=== PATIENT | female | born 1960 | race Caucasian/White ===

== ENCOUNTER → 2024-01-12 | Emergency (ER) | payer OTHER ==
[~2024-01-12] MED LIST: DIAZEPAM 5 MG TABLET ONE; HYDROCODONE/APAP 10/325 TAB ONE; HYDROCODONE/APAP 5/325 MG TAB ONE; IBUPROFEN 400 MG TAB ONE
[2024-01-12 20:06] LABS: Absolute Lymphocytes (CBC) 1.2 K/uL (0.7-4.9); Basophils % 0.3 % (0-1.3); Hematocrit 35.8 % (36.0-45.0); Lymphocytes % 11.6 % (15.3-44.8); Platelets 398 thou/uL (152-406); RBC Red Blood Cell Count 3.97 M/uL (3.86-4.86)
[2024-01-12 20:28] LABS: ALT/SGPT 25 U/L (13-56); AST/SGOT 20 U/L (15-37); Albumin 3.4 g/dL (3.4-5.0); Albumin/Globulin Ratio 0.9 (1.1-1.8); Alkaline Phosphatase 129 U/L (45-117); Anion Gap 9.3 mEq/L (5.0-15.0); BUN Blood Urea Nitrogen 10 mg/dL (7-18); Bicarbonate 25 mEq/L (21-32); Bilirubin Direct < 0.1 mg/dL (0-0.2); Bilirubin Indirect, Calculated ND mg/dL (0.2-0.8); Bilirubin Total 0.2 mg/dL (0.2-1.0); Glomerular Filtration Rate 66 ml/min (=/>90); Glucose Level 119 mg/dL (74-106); Potassium 4.3 mEq/L (3.5-5.1); Protein, Total 7.1 g/dL (6.4-8.2); Sodium Level 132 mEq/L (136-145); Troponin High Sensitivity 22.2 pg/mL (<58.9)
--- NOTE | 2024-01-12 20:39 | RAD REPORT ---
EXAM DESCRIPTION: RAD - Chest Single View - 01/12/2024 8:32 pm CLINICAL HISTORY: CHEST PAIN COMPARISON: No comparisons FINDINGS: Lines: None. Lungs: No evidence of edema or pneumonia. Pleural: No significant pleural effusions or pneumothorax. Cardiac: The heart size is within normal limits. Mediastinum: Within normal limits. Bones: No acute fractures. Other: None IMPRESSION: No acute cardiopulmonary disease.
--- NOTE | 2024-01-12 21:12 | RAD REPORT ---
EXAM DESCRIPTION: CT - Chest For Pe Angio - 01/12/2024 9:01 pm CLINICAL HISTORY: right sided chest pain- patient fell monday COMPARISON: No comparisons TECHNIQUE: Dynamically enhanced axial 3 mm thick images of the chest were obtained during administra tion of <100> mL Isovue 370 IV contrast. Coronal and oblique reconstruction images were generated and reviewed. Exam utilizes a protocol for optimal evaluation of pulmonary arterial tree. Maximum intensity projections 3D imaging was utilized All CT scans are performed using dose optimization technique as appropriate and may include automated exposure control or mA/KV adjustment according to patient size. FINDINGS: Chest Wall: No suspicious thyroid nodules or pathologic lymphadenopathy. Lungs: No acute abnormality. Centrilobular and paraseptal emphysema. Pleura: No significant effusions or pneumothorax. Mediastinum/andre: No pathologic lymphadenopathy. Pulmonary arteries/Aorta: No filling defect identified. No aortic aneurysm. Heart: No significant pericardial effusion. Normal heart size. Upper abdomen: No acute abnormality. Bones: Mild T8 superior endplate deformity with less than 20% loss of height. IMPRESSION: Negative for pulmonary embolism. Mild superior endplate deformity at T8 suspicious for a n acute compression fracture with less than 20% loss of height and no bony retropulsion.
--- NOTE | 2024-01-12 21:16 | RAD REPORT ---
EXAM DESCRIPTION: CTAbdomen Pelvis W Contrast - 01/12/2024 9:01 pm CLINICAL HISTORY: TRAUMA COMPARISON: No comparisons TECHNIQUE: CT of the abdomen and pelvis was performed. All CT scans are performed using dose optimization technique as appropriate and may include automated exposure control or mA/KV adjustment according to patient size. FINDINGS: Lower chest: No acute abnormality. Liver: No acute abnormality or suspicious lesions. Biliary: Cholecystectomy. Extrahepatic biliary duct dilatation with common bile duct measuring 10 mil limeters which may be related to the postcholecystectomy state. Stomach: No significant focal abnormality. Duodenum: No significant focal abnormality. Pancreas: No significant abnormality. Spleen: No significant abnormality. Adrenal: No suspicious lesions. Kidney/ureter: No hydronephrosis. No renal calculi. Retroperitoneum: No retroperitoneal adenopathy. Vascular: No aneurysm. Atherosclerosis . Bowel: Moderate stool. No appendicitis. No bowel obstruction.. Peritoneum: No ascites or free air. Small fat containing ventral hernia. Bladder: Grossly unremarkable. Reproductive: No adnexal masses. Hysterectomy. Bones: No acute fracture. Other: n/a IMPRESSION: No acute intra-abdominal or pelvic finding.
[2024-01-12 21:35] LABS: Blood Morphology Comment NOT SEEN (NOT SEEN); Platelet Estimate ADEQ; White Blood Cell Scan OK (OK)
--- NOTE | 2024-01-12 21:41 | EDPHYS ---
Physician Documentation [facility] Name: Sharon Fisher Age: 63 yrs Sex: Female : 1960 Arrival Date: 01/12/2024 Time: 19:03 Bed 5 Private MD: ED Physician Henry Kent HPI: 01/11 19:37 This 63 yrs old Female presents to ER via Ambulatory with complaints of Shortness Of ms3 Breath, Back Pain. 19:37 63-year-old female with past medical history of hypertension [place] [facility] [place] pain. Patient states last Monday she was getting out of bed when her foot was caught in the sheet and caused her to fall. 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 Patient saw [facility] on where x-rays were performed that did not reveal fracture. Patient states her pain is currently 7/10 and breathing makes the pain worse. Patient denies any alleviating factors.. Historical: - Allergies: 19:14 Sulfa (Sulfonamide Antibiotics); km8 19:14 Lluvia; km8 19:14 entrex; km8 - PMHx: 19:14 Hypertensive disorder; km8 - PSHx: 19:14 Appendectomy; section; Cholecystectomy; Total abdominal hysterectomy; km8 Tonsillectomy; neck surgery; abdominal surgery; - Immunization history:: Client reports receiving the 2nd dose of the Covid vaccine, Flu vaccine is not up to date. - Social history:: Smoking status: Patient reports the use of cigarette tobacco products, smokes one pack cigarettes per day. Patient uses alcohol, but reports only rare drinking. Patient/guardian denies using street drugs. ROS: 19:37 Constitutional: Negative for fever, and chills. Neck: Negative for injury, pain, and ms3 swelling, 19:37 Neck: Positive for Pain, 19:37 Cardiovascular: Positive for chest pain, of the Right thoracic region, 19:37 Respiratory: Positive for Pleuritic chest pain, Exam: 19:37 Constitutional: This is a well developed, well nourished patient who is awake, alert, ms3 and in no acute distress. Head/Face: Normocephalic, atraumatic. Cardiovascular: Regular rate and rhythm with a normal S1 and S2. No gallops, murmurs, or rubs. Normal PMI, no JVD. No pulse deficits. Respiratory: Lungs have equal breath sounds bilaterally, clear to auscultation and percussion. No rales, rhonchi or wheezes noted. No increased work of breathing, no retractions or nasal flaring. Skin: Warm, dry with normal turgor. Normal color with no rashes, no lesions, and no evidence of cellulitis. 19:37 Chest/axilla: Inspection: normal, Palpation: is normal, Patient complaining of posterior right-sided rib pain that is not reproducible with palpation. 19:52 ECG was reviewed by the Attending Physician. ms3 20:43 EKG at 1947 reveals normal sinus rhythm at the rate of 71 sp4 Vital Signs: 19:12 BP 155 / 97; Pulse 72; Resp 16; Temp 97.5(TE); Pulse Ox 100% on R/A; Weight 63.5 kg km8 (R); Height 5 ft. 3 in. ; Pain 7/10; 20:34 BP 140 / 83; Pulse 69; Resp 18; Pulse Ox 100% on R/A; mb9 20:50 BP 140 / 83; Pulse 69; Resp 17 S; Pulse Ox 98% on R/A; ha1 21:27 BP 153 / 87; Pulse 69; Resp 18; Temp 97.7(O); Pulse Ox 100% ; mb9 19:12 Body Mass Index 24.80 (63.50 kg, 160.02 cm) km8 19:12 Pain Scale: Adult km8 MDM: 19:35 Patient medically screened. ms3 19:37 Differential diagnosis: Pneumothorax Pulmonary Embolism Rib fracture versus vertebral ms3 fracture. 19:59 Transition of care: After a detail discussion of the patient's case, care is ms3 transferred to Henry Kent MD. 20:16 ED course: . sp4 20:43 Data reviewed: vital signs, nurses notes, old medical records, lab test result(s), EKG. sp4 21:26 ED course: EXAM DESCRIPTION: CTAbdomen Pelvis W Contrast - 01/12/2024 9:01 pm CLINICAL sp4 HISTORY: TRAUMA COMPARISON: No comparisons TECHNIQUE: CT of the abdomen and pelvis was performed. All CT scans are performed using dose optimization technique as appropriate and may include automated exposure control or mA/KV adjustment according to patient size. FINDINGS: Lower chest: No acute abnormality. Liver: No acute abnormality or suspicious lesions. Biliary: Cholecystectomy. Extrahepatic biliary duct dilatation with common bile duct measuring 10 millimeters which may be related to the postcholecystectomy state. Stomach: No significant focal abnormality. Duodenum: No significant focal abnormality. Pancreas: No significant abnormality. Spleen: No significant abnormality. Adrenal: No suspicious lesions. Kidney/ureter: No hydronephrosis. No renal calculi. Retroperitoneum: No retroperitoneal adenopathy. Vascular: No aneurysm. Atherosclerosis . Bowel: Moderate stool. No appendicitis. No bowel obstruction.. Peritoneum: No ascites or free air. Small fat containing ventral hernia. Bladder: Grossly unremarkable. Reproductive: No adnexal masses. Hysterectomy. Bones: No acute fracture. Other: n/a IMPRESSION: No acute intra-abdominal or pelvic finding. . ED course: EXAM DESCRIPTION: CT - Chest For Pe Angio - 01/12/2024 9:01 pm CLINICAL HISTORY: right sided chest pain- patient fell Monday COMPARISON: No comparisons TECHNIQUE: Dynamically enhanced axial 3 mm thick images of the chest were obtained during administration of <100> mL Isovue 370 IV contrast. Coronal and oblique reconstruction images were generated and reviewed. Exam utilizes a protocol for optimal evaluation of pulmonary arterial tree. Maximum intensity projections 3D imaging was utilized All CT scans are performed using dose optimization technique as appropriate and may include automated exposure control or mA/KV adjustment according to patient size. FINDINGS: Chest Wall: No suspicious thyroid nodules or pathologic lymphadenopathy. Lungs: No acute abnormality. Centrilobular and paraseptal emphysema. Pleura: No significant effusions or pneumothorax. Mediastinum/andre: No pathologic lymphadenopathy. Pulmonary arteries/Aorta: No filling defect identified. No aortic aneurysm. Heart: No significant pericardial effusion. Normal heart size. Upper abdomen: No acute abnormality. Bones: Mild T8 superior endplate deformity with less than 20% loss of height. IMPRESSION: Negative for pulmonary embolism. Mild superior endplate deformity at T8 suspicious for an acute compression fracture with less than 20% loss of height and no bony retropulsion. . 01/11 19:37 Order name: Basic Metabolic Panel; Complete Time: 20:32 ms3 01/11 19:37 Order name: CBC with Diff; Complete Time: 21:44 ms3 01/11 19:37 Order name: LFT's; Complete Time: 20:32 ms3 01/11 19:37 Order name: Magnesium; Complete Time: 20:32 ms3 01/11 19:37 Order name: Troponin HS; Complete Time: 20:32 ms3 01/11 21:35 Order name: CBC Smear Scan; Complete Time: 21:44 EDMS 01/11 19:37 Order name: XRAY Chest (1 view); Complete Time: 21:44 ms3 01/11 19:37 Order name: CT Chest For PE Angio; Complete Time: 21:44 ms3 01/11 20:04 Order name: CT Abd/Pelvis - IV Contrast Only; Complete Time: 21:44 ms3 01/11 19:37 Order name: EKG; Complete Time: 19:38 ms3 01/11 19:37 Order name: Cardiac monitoring; Complete Time: 19:40 ms3 01/11 19:37 Order name: EKG - Nurse/Tech; Complete Time: 19:49 ms3 01/11 19:37 Order name: IV Saline Lock; Complete Time: 19:49 ms3 01/11 19:37 Order name: Labs collected and sent; Complete Time: 19:49 ms3 01/11 19:37 Order name: O2 Per Protocol; Complete Time: 19:40 ms3 01/11 19:37 Order name: O2 Sat Monitoring; Complete Time: 19:40 ms3 EC:52 Rate is 71 beats/min. Rhythm is regular. Right axis deviation noted. OR interval is ms3 normal. QRS interval is normal. Clinical impression: NSR w/ Non-specific ST/T Changes. Interpreted by me. Reviewed by me. Administered Medications: 19:40 Drug: HYDROcodone-acetaminophen PO 5 mg-325 mg 1 tabs PO once Route: PO; mb9 21:43 Follow up: Response: No adverse reaction mb9 19:40 Drug: Diazepam PO 5 mg PO once Route: PO; mb9 21:42 Follow up: Response: No adverse reaction mb9 21:06 Drug: Burton PO 10 mg-325 mg 1 tabs PO once Route: PO; mb9 21:42 Follow up: Response: No adverse reaction mb9 21:06 Drug: Ibuprofen PO 800 mg PO once Route: PO; mb9 21:42 Follow up: Response: No adverse reaction mb9 Disposition Summary: 01/12/24 21:40 Discharge Ordered Problem: new sp4 Symptoms: have improved sp4 Condition: Stable sp4 Diagnosis - T8 superior endplate compression fracture, acute, fall at home subsequent sp4 encounter Followup: sp4 - With: Private Physician - When: 7 - 10 days - Reason: Recheck today's complaints Discharge Instructions: - Discharge Summary Sheet sp4 - Spinal Compression Fracture sp4 Forms: - Patient Portal Instructions sp4 - Work release form ty Prescriptions: - Zanaflex 4 mg Oral Tablet - take 2 tablets ORAL route every 8 hours As needed; 30 tablet; Refills: 0, sp4 Product Selection Permitted - Tramadol 50 mg Oral tablet - take 1 tablet ORAL route every 8 hours as needed; 25 tablet; Refills: 0, sp4 Product Selection Permitted Signatures: Dispatcher [employer] EDMS Mina Espinal, DO ms3 Trina, Rody Yu, RN RN mb9 Henry Kent MD MD sp4 Dina Emanuel RN RN km8 Corrections: (The following items were deleted from the chart) 19:16 19:14 PMHx: Hypothyroidism; km8 km8
--- NOTE | 2024-01-12 21:41 | ER ---
Nurse's Notes [facility] Name: Sharon Fisher Age: 63 yrs Sex: Female : 1960 Arrival Date: 01/12/2024 Time: 19:03 Bed 5 Private MD: Diagnosis: T8 superior endplate compression fracture, acute, fall at home subsequent encounter Presentation: 01/11 19:12 Chief complaint: Patient states: pt reports back pain starting Monday that got worse km8 today with SOB now and feeling lightheaded; pt denies CP; pt seen by by a doctor in [place] and given steroids and muscle relaxers with no relief. Coronavirus screen: Client denies travel out of the [place] in the last 14 days. Ebola Screen: No symptoms or risks identified at this time. Initial Sepsis Screen: Does the patient meet any 2 criteria? No. Patient's initial sepsis screen is negative. Does the patient have a suspected source of infection? No. Patient's initial sepsis screen is negative. Risk Assessment: Do you want to hurt yourself or someone else? Patient reports no desire to harm self or others. Onset of symptoms was January 09, 2024. 19:12 Method Of Arrival: Ambulatory km8 19:12 Acuity: NICK 2 km8 Triage Assessment: 19:14 General: Appears in no apparent distress. uncomfortable, Behavior is cooperative, km8 appropriate for age, crying. Pain: Complains of pain in thoracic area Pain currently is 7 out of 10 on a pain scale. Quality of pain is described as shooting, stinging Is continuous. EENT: No signs and/or symptoms were reported regarding the EENT system. Neuro: Level of Consciousness is awake, alert, obeys commands, Oriented to person, place, time, situation. Cardiovascular: Reports shortness of breath, Denies chest pain, Patient's skin is warm and dry. Respiratory: Reports shortness of breath pain with respiration Airway is patent Respiratory effort is even, unlabored, Respiratory pattern is regular, symmetrical, Onset: The symptoms/episode began/occurred 3 days ago, the patient has moderate shortness of breath. GI: No signs and/or symptoms were reported involving the gastrointestinal system. : No signs and/or symptoms were reported regarding the genitourinary system. Derm: No signs and/or symptoms reported regarding the dermatologic system. Skin is intact, is healthy with good turgor, Skin is dry, Skin is pink, warm \T\ dry. normal, Skin temperature is warm. Musculoskeletal: No signs and/or symptoms reported regarding the musculoskeletal system. Range of motion: intact in all extremities. Historical: - Allergies: 19:14 Sulfa (Sulfonamide Antibiotics); km8 19:14 Lluvia; 8 19:14 entrex; km8 - PMHx: 19:14 Hypertensive disorder; km8 - PSHx: 19:14 Appendectomy; section; Cholecystectomy; Total abdominal hysterectomy; km8 Tonsillectomy; neck surgery; abdominal surgery; - Immunization history:: Client reports receiving the 2nd dose of the Covid vaccine, Flu vaccine is not up to date. - Social history:: Smoking status: Patient reports the use of cigarette tobacco products, smokes one pack cigarettes per day. Patient uses alcohol, but reports only rare drinking. Patient/guardian denies using street drugs. Screenin:[facility] ED Fall Risk Assessment (Adult) History of falling in the last 3 months, mb9 including since admission No falls in past 3 months (0 pts) Confusion or Disorientation No (0 pts) Intoxicated or Sedated No (0 pts) Impaired Gait No (0 pts) Mobility Assist Device Used No (0 pt) Altered Elimination No (0 pt) Score/Fall Risk Level 0 - 2 = Low Risk Oriented to surroundings, Maintained a safe environment, Educated pt \T\ family on fall prevention, incl call for assistance when getting out of bed. Abuse screen: Denies threats or abuse. Nutritional screening: No deficits noted. Tuberculosis screening: No symptoms or risk factors identified. Assessment: 19:40 General: Appears in no apparent distress. Behavior is calm, cooperative. Pain: mb9 Complains of pain in back Pain radiates to chest Pain currently is 7 out of 10 on a pain scale. Quality of pain is described as burning, Pain began 2-3 days ago. Aggravated by inspiration. Neuro: Sarkar Agitation-Sedation Scale (RASS): 0 - Alert and Calm Level of Consciousness is awake, alert, obeys commands, Oriented to person, place, time, situation, Appropriate for age. Cardiovascular: Heart tones S1 S2 present Patient's skin is warm and dry. Rhythm is regular. Respiratory: Reports shortness of breath Airway is patent Respiratory effort is even, unlabored, Respiratory pattern is regular, symmetrical, Breath sounds are clear bilaterally. GI: Abdomen is round non-distended, Bowel sounds present X 4 quads. Abd is soft and non tender X 4 quads. : No signs and/or symptoms were reported regarding the genitourinary system. EENT: No signs and/or symptoms were reported regarding the EENT system. Derm: Skin is pink, warm \T\ dry. Musculoskeletal: Range of motion: intact in all extremities. 20:50 Reassessment: No changes from previously documented assessment. Patient and/or family mb9 updated on plan of care and expected duration. Pain level reassessed. Patient is alert, oriented x 3, equal unlabored respirations, skin warm/dry/pink. 21:42 Reassessment: No changes from previously documented assessment. Patient and/or family mb9 updated on plan of care and expected duration. Pain level reassessed. Patient is alert, oriented x 3, equal unlabored respirations, skin warm/dry/pink. Vital Signs: 19:12 BP 155 / 97; Pulse 72; Resp 16; Temp 97.5(TE); Pulse Ox 100% on R/A; Weight 63.5 kg km8 (R); Height 5 ft. 3 in. ; Pain 7/10; 20:34 BP 140 / 83; Pulse 69; Resp 18; Pulse Ox 100% on R/A; mb9 20:50 BP 140 / 83; Pulse 69; Resp 17 S; Pulse Ox 98% on R/A; ha1 21:27 BP 153 / 87; Pulse 69; Resp 18; Temp 97.7(O); Pulse Ox 100% ; mb9 19:12 Body Mass Index 24.80 (63.50 kg, 160.02 cm) km8 19:12 Pain Scale: Adult km8 ED Course: 19:06 Patient arrived in ED. rg4 19:11 Mina Espinal DO is Attending Physician. ms3 19:14 Triage completed. km8 19:14 Arm band placed on right wrist. km8 19:22 Placed in gown. Bed in low position. Call light in reach. Side rails up X 1. Client mb9 placed on continuous cardiac and pulse oximetry monitoring. NIBP monitoring applied. boom master on. 19:22 No provider procedures requiring assistance completed. mb9 19:40 Rody Mena, RN is Primary Nurse. mb9 19:41 EKG done, by ED staff, reviewed by Mina Espinal DO. mb9 19:49 Basic Metabolic Panel Sent. mb9 19:49 CBC with Diff Sent. mb9 19:49 LFT's Sent. mb9 19:49 Magnesium Sent. mb9 19:49 Troponin HS Sent. mb9 19:49 Inserted saline lock: 22 gauge in right forearm, using aseptic technique. Blood mb9 collected. 19:49 Initial lab(s) drawn, by or, sent to lab. mb9 20:00 Attending Physician role handed off by Mina Espinal DO ms3 20:00 Henry Kent MD is Attending Physician. ms3 20:34 XRAY Chest (1 view) In Process Unspecified. EDMS 20:34 Door closed. Noise minimized. Warm blanket given. mb9 20:[address] via stretcher. mb9 21:03 CT Chest For PE Angio In Process Unspecified. EDMS 21:03 CT Abd/Pelvis - IV Contrast Only In Process Unspecified. EDMS 21:42 IV discontinued, intact, bleeding controlled, No redness/swelling at site. Pressure mb9 dressing applied. Administered Medications: 19:40 Drug: HYDROcodone-acetaminophen PO 5 mg-325 mg 1 tabs PO once Route: PO; mb9 21:43 Follow up: Response: No adverse reaction mb9 19:40 Drug: Diazepam PO 5 mg PO once Route: PO; mb9 21:42 Follow up: Response: No adverse reaction mb9 21:06 Drug: Parachute PO 10 mg-325 mg 1 tabs PO once Route: PO; mb9 21:42 Follow up: Response: No adverse reaction mb9 21:06 Drug: Ibuprofen PO 800 mg PO once Route: PO; mb9 21:42 Follow up: Response: No adverse reaction mb9 Medication: 19:35 VIS not applicable for this client. mb9 Outcome: 21:40 Discharge ordered by . sp4 21:47 Discharged to home ambulatory, with family, mb9 21:47 Condition: stable 21:47 Discharge instructions given to patient, Instructed on discharge instructions, follow up and referral plans. Demonstrated understanding of instructions, follow-up care, medications, Prescriptions given X 2, 21:48 Patient left the ED. mb9 Signatures: Dispatcher [employer] Di Chavis rg4 Espinal, Mina, DO DO ms3 Diane Spain, RN RN ha1 Trina, Rody Yu RN RN mb9 Henry Kent MD MD sp4 Dina Emanuel RN RN km8 Corrections: (The following items were deleted from the chart) 19:16 19:14 PMHx: Hypothyroidism; km8 km8
[2024-01-12 21:52] VITALS: O2SAT 100
[2024-01-12 22:18] VITALS: BP 153/87; TEMP 97.7
== END ==
LOC: ER 19:03
DX: S22.068A Other fracture of T7-T8 thoracic vertebra, initial encounter for closed fracture (principal); W18.30XA Fall on same level, unspecified, initial encounter; Y92.009 Unspecified place in unspecified non-institutional (private) residence as the place of occurrence of the external cause; F17.210 Nicotine dependence, cigarettes, uncomplicated; Z88.2 Allergy status to sulfonamides; Z88.8 Allergy status to other drugs, medicaments and biological substances
CPT/HCPCS: 85025; 80048; 36415; 83735; 80076; 84484; 71275; 74177; 71045; 99285; Q9967

== ENCOUNTER 2024-04-17 16:18 | Emergency (ER) | payer OTHER ==
--- OUTSIDE RECORDS SUMMARY | 2024-04-17 16:23 | XMS REPORT | Continuity of Care Document ---
Author Name Unknown Address [address] [facility] [address] [place] [address] [facility] thconnect Address [address] [facility] [address] [place] [address] Care Team Providers Care Claim Adjuster Name Role Phone MO GASTELUM Attending Clinician Unavailable PATRICK LANDA Attending Clinician Unavailable JOSEPHINE GUILLERMO Attending Clinician Unavailable PAMELA MCKEON Attending Clinician Unavailable GERALD BANERJEE Attending Clinician Unavailable HA GREENE Attending Clinician Unavailable KRYS GUZMAN Attending Clinician Unava ilable GEOVANNY BROWN Attending Clinician Unavailable JACQUE ESPINAL Attending Clinician Unavailable LAB90 Attending Clinician Unavailable DEENA Attending Clinician Unavailable Yamileth Trejo Attending Clinician Unavail able Referred, Self Admitting Clinician Unavailable Payers Payer Name Policy Type Policy Number Effective Date Expirati on Date Source [facility] DIVINARosinaMELBULL HOWELL FOCUS 9 [id number] 2024 00:00:00 Problems Condition Name Condition Details Condition Category Status Onset Date Resolution Date Last Treatment Date Treating Clinician Comments Source Immunodefi ciency due to conditions classified elsewhere (multi HCC) Immunodefi ciency due to conditions classified elsewhere (multi HCC) Disease Active 12-29 00:00: 00 Divina Seybold - Externa l Varicose veins of both lower extremitie s with pain Varicose veins of both lower extremitie s with pain Disease Active 12-29 00:00: 00 Divina Seybold - Externa l Vitamin D deficiency Vitamin D deficiency Disease Active 12-29 00:00: 00 Divina Seybold - Externa l Moderate episode of recurrent major depressive disorder Moderate episode of recurrent major depressive disorder Disease Active 12-29 00:00: 00 Divina Seybold - Externa l Depression Depression Disease Active 11-29 00:00: 00 Divina Seybold - Externa l Anxiety Anxiety Disease Active 11-29 00:00: 00 Divina Seybold - Externa l COPD (chronic obstructiv e pulmonary disease) (multi HCC) COPD (chronic obstructiv e pulmonary disease) (multi HCC) Disease Active 11-29 00:00: 00 Divina Seybold - Externa l HTN (hypertens ion) HTN (hypertens ion) Disease Active 11-29 00:00: 00 Divina Seybold - Externa l Fibromyalg ia Fibromyalg ia Disease Active 11-24 00:00: 00 Divina Seybold - Externa l Cervicalgi a Cervicalgi a Disease Active 11-24 00:00: 00 Overview: Formattin g of this note might be different from the original. Neck surgery -- 2005 Divina Seybold - Externa l H/O: hysterecto my H/O: hysterecto my Disease Active 11-24 00:00: 00 Overview: Formattin g of this note might be different from the original. 1998 for endometri osis Divina Seybold - Externa l S/P appendecto my S/P appendecto my Disease Active 11-24 00:00: 00 Overview: Formattin g of this note might be different from the original. At age 19 Divina Seybold - Externa l Allergies, Adverse Reactions, Alerts Allergy Name Allergy Type Status Severity Reaction(s) Onset Date Inactive Date Treating Clinician Comments Source Fexofena dine Propensi ty to adverse reaction s Active 01-16 00:00: 00 Divina barba phenylep hrine DA Active U HIVES 01-03 00:00: 00 [facility] fexofena dine HCl DA Active [place] HIVES 01-03 00:00: 00 [facility] Sulfa (Sulfona mide Antibiot ics) DA Active [place] RASH 01-03 00:00: 00 [facility] guaifene sin DA Active U HIVES 01-03 00:00: 00 [facility] fexofena dine HCl DA Active [place] HIVES 2014-11 0 00:00: 00 [facility] Sulfa (Sulfona mide Antibiot ics) DA Active [place] RASH 2014-11 0 00:00: 00 [facility] guaifene sin DA Active U HIVES 2014-11 0 00:00: 00 [facility] phenylep hrine DA Active U HIVES 2014-11 0 00:00: 00 [facility] Drug Allergy Active Anaphylaxis 11-24 00:00: 00 Divina barba [facility] Drug Allergy Active Itching 11-24 00:00: 00 Divina barba Social History Social Habit Start Date Stop Date Quantity Comments Source Sexual orientation Anthony Chester - External History of tobacco use Cigarette Smoker Divina gottlieb - External Alcoholic beverage intake 2024-03-07 00:00:00 2024-03-07 00:00:00 Current drinker of alcohol (finding) Divina Chester - External Alcohol intake 2024-01-17 00:00:00 2024-01-17 00:00:00 Current drinker of alcohol (finding) Divina Chester - External History of Social function 2024-01-17 00:00:00 2024-01-17 00:00:00 Divina Chester - External Cigarettes smoked current (pack per day) - Reported 2023-12-29 00:00:00 2023-12-29 00:00:00 Divina Seybold - External Cigarette pack-years 2023-12-29 00:00:00 2023-12-29 00:00:00 Divina Walker Sex assigned at 1960 00:00:00 1960 00:00:00 Divina Walker Smoking Status Start Date Stop Date Source Smokes tobacco daily 2023-12-29 00:00:00 Divina Walker Medications Ordered Medication Name Filled Medication Name Start Date Stop Date Current Medication? Ordering Clinician Indication Dosage Frequency Signature (SIG) Comments Components Source Tizanidine HCl 4 MG oral Capsule 03-07 00:00: 00 Yes [id number] 4mg Take 1 capsule (4 mg total) by mouth 3 times daily. Divina barba Diclofenac Sodium 75 MG oral Tablet Delayed Response 03-07 00:00: 00 Yes [id number] 75mg Take 1 tablet (75 mg total) by mouth 2 times daily. Divina barba Alendronate Sodium 70 MG oral Tablet 02-02 00:00: 00 Yes [id number] 70mg Take 1 tablet (70 mg total) by mouth every 7 days. Divina barba Acetaminoph en-Codeine 300-30 MG oral Tablet 01-23 00:00: 00 Yes [id number] 1{tbl} Q.25D Take 1 tablet by mouth every 6 hours as needed for pain. Divina barba Diclofenac Sodium 75 MG oral Tablet Delayed Response 01-23 00:00: 00 03-07 00:00 :00 No [id number] 75mg Take 1 tablet (75 mg total) by mouth 2 times daily. Divina barba hydroCHLORO thiazide 25 MG oral Tablet 01-16 16:45: 36 Yes 25mg Take 1 tablet (25 mg total) by mouth daily. Divina barba Clonidine HCl (CATAPRES) 0.1 MG oral Tablet 01-16 16:45: 36 Yes .1mg Take 1 tablet (0.1 mg total) by mouth 2 times daily. Divina barba Acetaminoph en-Codeine 300-30 MG oral Tablet 01-16 00:00: 00 Yes [id number] 1{tbl} Q.25D Take 1 tablet by mouth every 6 hours as needed for pain. Divina barba Tramadol HCl (ULTRAM) 50 MG oral Tablet 01-12 00:00: 00 Yes 50mg [id number] 3D Take 1 tablet (50 mg total) by mouth every 8 hours as needed. Divina barba Tizanidine HCl 4 MG oral Tablet 01-12 00:00: 00 03-07 00:00 :00 No 8mg Q.[id number] 3D Take 2 tablets (8 mg total) by mouth every 8 hours as needed. Divina barba Baclofen 10 MG oral Tablet 01-10 00:00: 00 03-07 00:00 :00 No [id number] 10mg Take 1 tablet (10 mg total) by mouth 2 times daily. Divina barba predniSONE (DELTASONE) 20 MG oral tablet 01-10 00:00: 00 01-16 04:59 :00 No [id number] 40mg Take 2 tablets (40 mg total) by mouth daily for 5 days. Divina barba Cholecalcif jewel (Vitamin D) 50 MCG (2000 UT) oral Tablet 01-05 00:00: 00 Yes [id number] 2000U Take 1 tablet (2,000 units total) by mouth daily. Divina barba Atomoxetine HCl 40 MG oral Capsule 01-04 00:00: 00 Yes [id number] 40mg Take 1 capsule (40 mg total) by mouth daily. Divina barba hydroCHLORO thiazide 25 MG oral Tablet 11:48: 42 Yes 25mg Take 1 tablet (25 mg total) by mouth daily. Divina barba Clonidine HCl (CATAPRES) 0.1 MG oral Tablet 11:48: 42 Yes .1mg Take 1 tablet (0.1 mg total) by mouth 2 times daily. Divina barba hydroCHLORO thiazide 25 MG oral Tablet 12-29 11:03: 04 Yes 25mg Take 1 tablet (25 mg total) by mouth daily. Divina barba Clonidine HCl (CATAPRES) 0.1 MG oral Tablet 12-29 11:03: 04 Yes .1mg Take 1 tablet (0.1 mg total) by mouth 2 times daily. Divina barba busPIRone HCl 7.5 MG oral Tablet 12-29 00:00: 00 Yes [id number] 7.5mg Take 1 tablet (7.5 mg total) by mouth 2 times daily. Divina barba Atomoxetine HCl 40 MG oral Capsule 11-29 15:40: 34 11-29 00:00 :00 No 40mg Take 1 capsule (40 mg total) by mouth daily. Divina barba Pantoprazol e Sodium 40 MG oral Tablet Delayed Response 11-29 15:40: 34 11-29 00:00 :00 No 40mg Take 1 tablet (40 mg total) by mouth daily. Divina barba Atenolol 100 MG oral Tablet 11-29 15:36: 29 11-29 00:00 :00 No 100mg Take 1 tablet (100 mg total) by mouth daily. Divina barba Sucralfate 1 g oral Tablet 11-29 15:35: 50 11-29 00:00 :00 No 1g Take 1 tablet (1 g total) by mouth 4 times daily. Divina barba Citalopram Hydrobromid e (CELEXA) 40 MG OR TABS 11-29 15:30: 36 11-29 00:00 :00 No 1 TABLET DAILY Divina barba hydroCHLORO thiazide 25 MG oral Tablet 11-29 15:22: 27 Yes 25mg Take 1 tablet (25 mg total) by mouth daily. Divina barba Clonidine HCl (CATAPRES) 0.1 MG oral Tablet 11-29 15:22: 27 Yes .1mg Take 1 tablet (0.1 mg total) by mouth 2 times daily. Divina barba Hydrocodone -Acetaminop hen 10-650 MG OR TABS 11-29 15:18: 38 11-29 00:00 :00 No 1 TABLET EVERY 4 TO 6 HOURS NEEDED Divina barba Carisoprodo l 350 MG OR TABS 11-29 15:18: 38 11-29 00:00 :00 No 1 TABLET 4 TIMES A DAY Divina barba Gabapentin 100 MG OR CAPS 11-29 15:18: 38 11-29 00:00 :00 No 1 CAPSULE 3 TIMES DAILY Divina barba Estrogens Conjugated (PREMARIN) 0.625 MG OR TABS 11-29 15:18: 38 11-29 00:00 :00 No 1 TABLET DAILY Divina barba LISINOPRIL- HCTZ 20-25 MG OR TABS 11-29 15:18: 38 11-29 00:00 :00 No 1 TABLET DAILY Divina barba Cetirizine HCl (ZYRTEC) 10 MG OR TABS 11-29 15:18: 38 11-29 00:00 :00 No 1 TABLET DAILY Divina barba Atenolol 100 MG oral Tablet 11-29 00:00: 00 Yes [id number] 100mg Take 1 tablet (100 mg total) by mouth daily. Divina barba Pantoprazol e Sodium 40 MG oral Tablet Delayed Response 11-29 00:00: 00 Yes [id number] 40mg Take 1 tablet (40 mg total) by mouth daily. Divina barba Citalopram Hydrobromid e (CeleXA) 40 MG oral Tablet 11-29 00:00: 00 Yes [id number] 40mg Take 1 tablet (40 mg total) by mouth daily. Divina barba hydrOXYzine Pamoate 25 MG oral Capsule 11-29 00:00: 00 Yes [id number] Take 1-2 capsules by mouth every days as needed for anxiety or sleep. Divina barba Sucralfate 1 g oral Tablet 11-29 00:00: 00 Yes [id number] Take one tablet by mouth twice a day thirty minutes before meals. Divina barba Atomoxetine HCl 40 MG oral Capsule 11-29 00:00: 00 Yes [id number] 40mg Take 1 capsule (40 mg total) by mouth daily. Divina barba Vital Signs Vital Name Observation Time Observation Value Comments S ource Systolic blood pressure 2024-01-17 21:38:00 132 mm[Hg] Divina melo ld - External Diastolic blood pressure 2024-01-17 21:38:00 82 mm[Hg] Divina melo ld - External Heart rate 2024-01-17 21:38:00 80 /min Gallo Chester - External Body temperature 2024-01-17 21:38:00 36.67 Bridget Divina ybold - External Respiratory rate 2024-01-17 21:38:00 16 /min Divina Chester - External Body height 2024-01-17 21:38:00 160 cm Tammi Chester - External Body weight 2024-01-17 21:38:00 66.48 kg Tammi Brysonold - External BMI 2024-01-17 21:38:00 25.96 kg/m2 Tammi Brysonold - External Oxygen saturation in Arterial blood by Pulse oximetry 2024-01-17 21:38:00 100 /min Divina angel ld - External Systolic blood pressure 2023-12-29 16:59:00 124 mm[Hg] Divina melo ld - External Diastolic blood pressure 2023-12-29 16:59:00 80 mm[Hg] Divina melo ld - External Heart rate 2023-12-29 16:59:00 76 /min Benjiese y Semelold - External Body temperature 2023-12-29 16:59:00 36.5 Bridget Divina ybold - External Respiratory rate 2023-12-29 16:59:00 14 /min Divina Seybold - External Body height 2023-12-29 16:59:00 160 cm Tammi ey Seybold - External Body weight 2023-12-29 16:59:00 63.05 kg Tammi ey Seybold - External BMI 2023-12-29 16:59:00 24.62 kg/m2 Tammi ey Seybold - External Systolic blood pressure 2023-11-29 21:16:00 140 mm[Hg] Divina Seybo ld - External Diastolic blood pressure 2023-11-29 21:16:00 86 mm[Hg] Divina Seybo ld - External Heart rate 2023-11-29 21:16:00 77 /min Kelse y Seybold - External Body temperature 2023-11-29 21:16:00 36.44 Bridget Divina Seybold - External Respiratory rate 2023-11-29 21:16:00 20 /min Divina Seybold - External Body height 2023-11-29 21:16:00 160 cm Tammi ey Seybold - External Body weight 2023-11-29 21:16:00 62.596 kg Tammi ey Seybold - External BMI 2023-11-29 21:16:00 24.45 kg/m2 Tammi ey Seybold - External Encounters Start Date/Time End Date/Time Encounter Type Admission Type Attending [facility] Care Department Encounter ID Source 2024-10-23 14:00:00 2024-10-23 14:00:00 Outpatient MO GASTELUM [id number] Divina ybbull 2024-07-03 13:45:00 2024-07-03 13:45:00 Outpatient PATRICK LANDA [id number] Divina Seybbull 2024-04-16 15:00:00 2024-04-16 15:00:00 Outpatient DIVINA MUNOZ [id number] Divina Seybbull 2024-04-10 13:00:00 2024-04-10 13:00:00 Outpatient MO GASTELUM [id number] Divina Seybbull 2024-03-25 13:00:00 2024-03-25 13:00:00 [facility] [id number] [facility] 2024-03-22 00:00:00 2024-03-22 00:00:00 Outpatient JOSEPHINE GUILLERMO DIVINA [facility]UNO[facility] [id number] [facility] 2024-03-12 12:40:00 2024-03-12 12:40:00 Outpatient DIVINA MUNOZ [id number] [facility] 2024-03-07 20:45:00 2024-03-07 20:45:00 Outpatient PAMELA MCKEON DIVINA MUNOZ [id number] [facility] 2024-03-07 18:25:00 2024-03-07 18:25:00 Outpatient CHRISS GERALD DIVINA MUNOZ [id number] [facility] 2024-02-27 00:00:00 2024-02-27 00:00:00 Outpatient HA GREENE [id number] [facility] 2024-02-02 14:00:00 2024-02-02 14:00:00 Outpatient DIVINA MUNOZ [id number] [facility] 2024-01-31 13:00:00 2024-01-31 13:00:00 Outpatient HA GREENE [id number] [facility] 2024-01-26 00:00:00 2024-01-26 00:00:00 Outpatient HA GREENE [id number] [facility] 2024-01-26 00:00:00 2024-01-26 00:00:00 Outpatient DIVINA MUNOZ [id number] Divina Seybold 2024-01-24 00:00:00 2024-01-24 00:00:00 Outpatient HA GREENE [id number] Divina Seybold 2024-01-18 00:00:00 2024-01-18 00:00:00 Outpatient PATRICK LANDA [id number] Divina Seybold 2024-01-17 16:30:00 2024-01-17 16:30:00 Outpatient KRYS GUZMAN [id number] Divina Seybold 2024-01-15 00:00:00 2024-01-15 00:00:00 Outpatient HUNDL, HA DIVINA MUNOZ [id number] Divina Chester 2024-01-12 00:00:00 2024-01-12 00:00:00 Outpatient DIVINA MUNOZ [id number] Divina Chester 2024-01-11 14:00:00 2024-01-11 14:00:00 Outpatient GEOVANNY BROWN DIVINA MUNOZ [id number] Divina Louybbull 2024-01-11 13:05:00 2024-01-11 13:05:00 Outpatient DIVINA MUNOZ [id number] Divina Chester 2024-01-11 11:15:00 2024-01-11 11:15:00 Outpatient JACQUE ESPINAL DIVINA MUNOZ [id number] Divina Loubull 2024-01-11 00:00:00 2024-01-11 00:00:00 Outpatient JACQUE ESPINAL DIVINA MUNOZ [id number] [facility] 2024-01-06 00:00:00 2024-01-06 00:00:00 Outpatient HA GREENE DIVINA MUNOZ [id number] [facility] 2024-01-04 00:00:00 2024-01-04 00:00:00 Outpatient HA GREENE DIVINA MUNOZ [id number] [facility] 2023-12-29 11:55:00 2023-12-29 11:55:00 Outpatient LAB90 DIVINA MUNOZ [id number] [facility] 2023-12-29 11:00:00 2023-12-29 11:00:00 Outpatient HA GREENE DIVINA MUNOZ [id number] [facility] 2023-12-05 00:00:00 2023-12-05 00:00:00 Outpatient GINNIMESH DIVINA MUNOZ [id number] [facility] 2023-11-29 15:15:00 2023-11-29 15:15:00 Outpatient KRYS GUZMAN [id number] Divina [facility] 2023-11-02 13:07:44 2023-11-02 13:07:44 Outpatient [facility] [id number] Timmy Borges 2023-10-06 15:35:23 2023-10-06 15:35:23 Outpatient [facility] [id number] Timmy Borges 2023-09-19 14:36:32 2023-09-19 14:36:32 Outpatient [facility] [id number] Timmy Borges 2023-06-21 10:17:31 2023-06-21 10:17:31 Outpatient [facility] [id number] Timmy Borges 2023-01-03 18:12:00 2023-01-03 21:41:00 Emergency EM Yamileth Trejo [facility] [id number] [facility] Results Test Description Test Time Test Comments Results Result Co mments Source COMPREHENSIVE METABOLIC [id number] 04:48:39* Test Item Value Reference Range Interpretation Comme nts GLUCOSE (test code = 2217) 134 MG/DL 70-99 H BUN (test code = 2208) 11 MG/DL 8-23 CREATININE (test code = 2214) 0.80 MG/DL 0.60-1.30 eGFR (2020 CKD-EPI) (test code = 77246) 83 ML/MIN/1.73 >60 CALC BUN/CREAT (test code = 2235) 14 RATIO 6-28 SODIUM (test code = 2231) 136 MEQ/L 133-146 POTASSIUM (test code = 2228) 4.7 MEQ/L 3.5-5.4 CHLORIDE (test code = 2215) 98 MEQ/L 95-107 CARBON DIOXIDE (test code = 2206) 27 MEQ/L 19-31 CALCIUM (test code = 2209) 9.7 MG/DL 8.5-10.5 PROTEIN, TOTAL (test code = 2229) 6.4 G/DL 6.1-8.3 ALBUMIN (test code = 2201) 4.2 G/DL 3.5-5.2 CALC GLOBULIN (test code = 2240) 2.2 G/DL 1.9-3.7 CALC A/G RATIO (test code = 2234) 1.9 RATIO 1.0-2.6 BILIRUBIN, TOTAL (test code = 2207) <0.2 MG/DL See_Comment [Automated me ssage] The system which generated this result transmitted reference range: <=1.2. The reference range was not used to interpret this result as normal/abnormal. ALKALINE PHOSPHATASE (test code = 2204) 114 U/L 40-140 AST (test code = 2218) 21 U/L 9-40 ALT (test code = 2219) 17 U/L 5-40 UNLESS OTHERWISE INDICATED, ALL TESTING PERFORMED AT [facility] [address] [place] [address] [employer] F[employer] EXTENSION SPECIALIST: BRANT LOPEZ M.D. [place] NUMBER [id number] [facility] [place] [id number] HEMOGLOBIN [id number] 04:16:47* Test Item Value Reference Range Interpretation Comme nts HEMOGLOBIN A1c (test code = 41861) 5.9 % 4.2-5.6 H [employer] GUIDELINES FOR HGB A1C: PREDIABETES/INCREASED RISK . . . . . . . 5.7-6.4% DIAGNOSIS OF DIABETES . . . . . . . . . >=6.5% WITH CONFIRMATION OR APPROPRIATE SYMPTOMS NOTE: ASSAY MAY BE AFFECTED BY HEMOGLOBINOPATHIES (SICKLE CELL ANEMIA, S-C DISEASE, OTHERS) OR ARTIFICIALLY LOWERED BY DECREASED RED CELL SURVIVAL (HEMOLYTIC ANEMIAS, BLOOD LOSS, ETC.). CONSIDER ALTERNATE TESTING OR LABORATORY CONSULTATION. CBC W/AUTO DIFF WITH [id number] 03:10:21* Test Item Value Reference Range Interpretation Comme nts WBC (test code = 1001) 6.4 K/UL 3.5-11.0 RBC (test code = 1002) 4.02 M/UL 3.80-5.40 HEMOGLOBIN (test code = 1003) 12.4 G/DL 11.5-15.5 HEMATOCRIT (test code = 1004) 37.4 % 34.0-45.0 MCV (test code = 1005) 93.0 fL 80.0-99.0 MCH (test code = 1006) 30.8 PG 25.0-33.0 MCHC (test code = 1007) 33.2 G/DL 31.0-36.0 RDW (test code = 1038) 12.6 % 11.5-15.0 NEUTROPHILS (test code = 1008) 38.0 % LYMPHOCYTES (test code = 1010) 46.0 % MONOCYTES (test code = 1011) 9.3 % EOSINOPHILS (test code = 1012) 5.4 % BASOPHILS (test code = 1013) 1.1 % IMMATURE GRANULOCYTES (test code = 1036) 0.2 % NUCLEATED RBCS (test code = 1065) 0.0 /100 WBC'S See_Comment [Automated messa ge] The system which generated this result transmitted reference range: 0.0. The reference range was not used to interpret this result as normal/abnormal. PLATELET COUNT (test code = 1015) 324 K/UL 130-400 ABSOLUTE NEUTROPHILS (test code = 1066) 2.44 K/UL 1.50-7.50 ABSOLUTE LYMPHOCYTES (test code = 1067) 2.96 K/UL 1.00-4.00 ABSOLUTE MONOCYTES (test code = 1068) 0.60 K/UL 0.20-1.00 ABSOLUTE EOSINOPHILS (test code = 1040) 0.35 K/UL 0.00-0.50 ABSOLUTE BASOPHILS (test code = 1069) 0.07 K/UL 0.00-0.20 ABS IMMATURE GRANULOCYTES (test code = 1020) 0.01 K/UL 0.00-0.10 ABS NUCLEATED RBCS (test code = 63418) 0.00 K/UL 0.00-0.11 COMPREHENSIVE METABOLIC [id number] 19:42:00* Test Item Value Reference Range Interpretation Comme nts SODIUM (test code = NA) 136 MMOL/L 133-145 N POTASSIUM (test code = K) 3.9 MMOL/L 3.6-5.2 N CHLORIDE (test code = CL) 98 MMOL/L 100-108 L CARBON DIOXIDE (test code = CO2) 29 MMOL/L 22-32 N GLUCOSE (test code = GLU) 89 MG/DL 65-99 N Results of this assay method may be falsely depressed orelevated if patient is taking sulfasalazine. BLOOD UREA NITROGEN (test code = BUN) 9 MG/DL 6-20 N GLOMERULAR FILTRATION RATE (test code = GFR) 68 45-104 N The Glomerular Filtration Rate is a calculated parameterbased on serum Creatinine, patient age and sex. GFR valuesless than 60 mL/min/1.73 square meters are indicative ofChronic Kidney Disease. Values less than 15 mL/min/1.73square meters indicate Kidney failure. The calculation forGFR is based on the CKD-EPI (202) calculation. This formulais race indifferent and is the recommended formula for GFRby the National Kidney Foundation for Adults.The GFR will not calculate if the sex is unknown or if thepatient's age is <18 years. CREATININE (test code = CREAT) 0.95 MG/DL 0.60-1.00 N TOTAL PROTEIN (test code = PROT) 6.8 G/DL 6.4-8.2 N ALBUMIN (test code = ALB) 3.3 G/DL 3.4-5.0 L GLOBULIN (test code = GLOB) 3.5 G/DL 1.5-3.8 N ALBUMIN/GLOBULIN RATIO (test code = A/G) 0.9 1.1-2.2 L CALCIUM (test code = CA) 8.8 MG/DL 8.7-10.5 N BILIRUBIN TOTAL (test code = BILT) 0.3 MG/DL 0.0-1.0 N SGOT/AST (test code = AST) 28 Units/L 15-37 N Results of this assay method may be falsely depressed orelevated if patient is taking sulfasalazine. SGPT/ALT (test code = ALT) 22 Units/L 30-65 L Results of this assay method may be falsely depressed orelevated if patient is taking sulfasalazine. ALKALINE PHOSPHATASE TOTAL (test code = ALKP) 115 Units/L 50-136 N [id number] 19:42:00* Test Item Value Reference Range Interpretation Comme nts MAGNESIUM (test code = MAG) 1.5 MG/DL 1.8-2.4 L UA RFLX [id number] 19:35:00* Test Item Value Reference Range Interpretation Comme nts UA COLOR (test code = COLU) YELLOW YELLOW UA APPEARANCE (test code = APPU) CLEAR CLEAR UA GLUCOSE DIPSTICK (test code = DGLUU) NEGATIVE mg/dL NEGATIVE UA BILIRUBIN DIPSTICK (test code = BILU) NEGATIVE NEGATIVE UA KETONE DIPSTICK (test cod e = KETU) NEGATIVE mg/dL NEGATIVE UA SPECIFIC GRAVITY (test code = SGU) 1.010 1.001-1.035 N UA BLOOD DIPSTICK (test code = DIANNE) NEGATIVE NEGATIVE UA PH DIPSTICK (test code = JENNYFER) 6.0 5.5-7.0 N UA PROTEIN DIPSTICK (test code = PROU) NEGATIVE mg/dL NEGATIVE UA UROBILINOGEN DIPSTICK (test code = URO) NORMAL mg/dL NORMAL UA NITRITE DIPSTICK (test code = MICHELLE) NEGATIVE NEGATIVE UA LEUKOCYTE ESTERASE DIPSTICK (test code = LEUU) 25 NEGATIVE A UA COMMENT (test code = COMU) VOLUME 10-12 ML URINE SPECIMEN DESCRIPTION (test code = UASPEC) Clean Catch UA [id number] 19:35:00* Test Item Value Reference Range Interpretation Comme nts UA WBC (test code = WBCU) < 10 #/hpf <10 UA RBC (test code = RBCU) 0-2 #/hpf NONE SEEN A UA SQUAMOUS CELLS (test code = SQU) 81 - 100 #/lpf <100 UA CULTURE NEEDED? (test code = UACULT) Criteria not met UA BACTERIA (test code = BACU) 2+ #/hpf NONE SEEN CBC W/AUTO [id number] 19:09:00* Test Item Value Reference Range Interpretation Comme nts WHITE BLOOD CELL (test code = WBC) 5.56 x10 3/uL 4.80-10.80 N RED BLOOD CELL (test code = RBC) 4.19 x10 6/uL 4.2-5.4 L HEMOGLOBIN (test code = HGB) 12.7 G/DL 12.0-16.0 N HEMATOCRIT (test code = HCT) 37.6 % 37-47 N MEAN CELL VOLUME (test code = MCV) 89.7 FL 81-99 N MEAN CELL HGB (test code = MCH) 30.3 PG 27-31 N MEAN CELL HGB CONCENTRATION (test code = MCHC) 33.8 G/DL 33-37 N RED CELL DISTRIBUTION WIDTH (test code = RDW) 12.5 % 11.5-14.5 N PLATELET COUNT (test code = PLT) 365 x10 3/uL 150-450 N MEAN PLATELET VOLUME (test c ode = MPV) 9.0 FL 7.4-10.4 N NEUTROPHIL % (test code = NT%) 40.1 % 42-86 L LYMPHOCYTE % (test code = LY%) 43.3 % 24-44 N MONOCYTE % (test code = MO%) 9.4 % 0.0-4.0 H EOSINOPHIL % (test code = EO%) 6.1 % 0.0-2.7 H BASOPHIL % (test code = BA%) 1.1 % 0.0-0.5 H NEUTROPHIL # (test code = NT#) 2.23 x10 3/uL 1.8-7.7 N LYMPHOCYTE # (test code = LY#) 2.41 x10 3/uL 1.0-4.8 N MONOCYTE # (test code = MO#) 0.52 x10 3/uL 0.0-0.8 N EOSINOPHIL # (test code = EO#) 0.34 x10 3/uL 0.0-0.5 N BASOPHIL # (test code = BA#) 0.06 x10 3/uL 0.0-0.2 N Notes Date/Time Note Provider Source 2024-01-17 16:45:38 [id number]:45:38F ormatting of this note might be different from the original.No chief complaint on file. [id number] [id number]:47:13Nurse [id number] for patient yvds71245-8Okuuf NoteLNNARRATIVEFormatted C-CDA narrative textChildren[facility]– [place] [facility] A[id number] -03-13T16:47:131.2.840.945700.1.72.3.15|1 [id number] [facility] 2023-12-29 11:03:08 [id number]:03:08F ormatting of this note is different from the original.Chief ComplaintPatient presents withPhysicalPatient is fasting. [place] [id number] WdbqNW0308-83-45H84:04:07Nurse [id number] for patient [id number] NoteLNNARRATIVEFormatted C-CDA narrative textChildren's Hospital of [facility]– [place]2727 [facility]als of [id number] -02-23T11:04:[id number]|1 [id number] 2299 [facility] 2023-01-03 18:51:00 [id number] whdEAapyR+lDmFOghrkpg [id number] 01-03T18:51:00 [facility] ([facility])OR A [facility]AMP[facility] OF [facility]ENC[facility] PROVIDER REPORTREPORT#:[id number] REPORT STATUS: SignedDATE:01/03/23 TIME: 1850 PATIENT: LEYDI JORDAN UNIT #: [id number]#: [id number] ROOM/BED:AGE: 62 SEX: F PCP PHYS: Dada Paulson III MDSERVICE AUTHOR: Yamileth Trejo MD * ALL edits or amendments must be made on the electronic/computer document * HPI-General Illness GeneralInitial Greet Date/Time 01/03/231813 PresentationChief Complaint b/l lower extremity numbness/ tignling and pain Free Text HPI NotesFree Text HPI NotesThis is a 62 years old female patient came in [facility] ambulating with complaints of bilateral lower extremity pain associated with numbness and tingling, she has been having the symptoms for about 2 weeks, off-and-on. Denies any aggravating or relieving factors. She denies any fall/ injuries or swelling/ edema/ rednessof extremities or fever. She has a history of low back pain with sciatica and fibromyalgia. She denies any bladder or bowel incontinence or lower extremity weakness Review of Systems Free Text ROS NotesFree Text ROS NotesCONSTITUTIONAL: No fever, fatigue or weight loss.SKIN: No rash.HENT: No congestion, ear pain, or sore throat.EYES: No recent vision problems or eye pain.CARDIOVASCULAR: No chest pain or edema.RESPIRATORY: No cough, shortness of breath, or wheezing.GASTROINTESTINAL: No abdominal pain, nausea, vomiting, bloody stools or diarrhea.GENITOURINARY: No dysuria.MUSCULOSKELETAL: No joint pain or swelling. See HPINEUROLOGIC: No seizures. No headache, focal weakness or sensory changes.HEMATOLOGIC: No unusual bruising or bleeding.PSYCHIATRIC: No depression or anxiety. Past Medical History - AdultStated Complaint NUMBNESS,WEAKNESS,MUSCLE PAIN,WEAK,DIZZYAllergiesCoded Allergies:Sulfa (Sulfonamide Antibiotics) (Mild, RASH 01/03/23)fexofenadine HCl (From Lluvia) (Mild, HIVES 01/03/23)guaifenesin (From ENTEX LQ) (HIVES 01/03/23)phenylephrine (From ENTEX LQ) (HIVES 01/03/23) Home MedicationsReported MedicationsCYCLOBENZAPRINE (FLEXERIL) 10 MG PO TID PRN PANTOPRAZOLE DR (PROTONIX) 40 MG PO BID CITALOPRAM (CeleXA) 60 MG PO HS Past Medical History:Reports: Hypertension. Additional Medical HistoryHTN, GERD, Perforated stomach ulcerPast Surgical History:Reports: , Hysterectomy. Smoking status for patients 13 years old or older: Current every day smoker Physical Exam Vital SignsVital SignsFirst Documented: Result Date Time Pulse Ox 97 01/03 183 B/P 114/75 01/03 183 B/P Mean 87.7 01/03 183 Pulse 65 01/03 183 Resp 01/03 Last Documented: Result Date Time Pulse Ox 97 01/03 183 B/P 114/75 01/03 183 B/P Mean 87.7 01/03 183 Pulse 65 01/03 183 Resp 01/03 183 Review of Vital Signs Reviewed Free Text PE NotesFree Text PE NotesVITAL SIGNS: See aboveGENERAL: No acute distress, non-toxic appearance.HEAD: Normal with no signs of head trauma.CHEST: Clear breath sounds bilaterally. No wheezes, rales, or rhonchi. CARDIAC: Regular rate and rhythm. No LE edemaABDOMEN: Normal and soft with no tendernessMUSCULOSKELETAL: Bilateral lower extremity appears normal, good range of motion,neurovascularly intact. Patient came in ambulating has normal gaitNEUROLOGICAL: Alert and oriented x 3. No focal sensory or strength deficits. Speech normal. PSYCHIATRIC: Normal Affect, judgement and mood.SKIN: Normal appearance with no rashes or lesions Interpretation Diagnostics Lab Results InterpretationResultsLaboratory Tests 01/03/231844:[Embedded Image Not Available]Laboratory Tests: 01/03 1845 Chemistry Sodium (133 - 145 MMOL/L) 136 Potassium (3.6 - 5.2 MMOL/L) 3.9 Chloride (100 - 108 MMOL/L) 98 L Carbon Dioxide (22 - 32 MMOL/L) 29 BUN (6 - 20 MG/DL) 9 Creatinine (0.60 - 1.00 MG/DL) 0.95 Estimated GFR (MDRD) (45 - 104) 68 Glucose (65 - 99 MG/DL) 89 Calcium (8.7 - 10.5 MG/DL) 8.8 Magnesium (1.8 - 2.4 MG/DL) 1.5 L Total Bilirubin (0.0 - 1.0 MG/DL) 0.3 AST (15 - 37 Units/L) 28 ALT (30 - 65 Units/L) 22 L Alkaline Phosphatase (50 - 136 Units/L) 115 Total Protein (6.4 - 8.2 G/DL) 6.8 Albumin (3.4 - 5.0 G/DL) 3.3 L Globulin (1.5 - 3.8 G/DL) 3.5 Albumin/Globulin Ratio (1.1 - 2.2) 0.9 L Hematology WBC (4.80 - 10.80 x10 3/uL) 5.56 RBC (4.2 - 5.4 x10 6/uL) 4.19 L Hgb (12.0 - 16.0 G/DL) 12.7 Hct (37 - 47 %) 37.6 MCV (81 - 99 FL) 89.7 MCH (27 - 31 PG) 30.3 MCHC (33 - 37 G/DL) 33.8 RDW Coeff of Jan (11.5 - 14.5 %) 12.5 Plt Count (150 - 450 x10 3/uL) 365 MPV (7.4 - 10.4 FL) 9.0 Neut % (Auto) (42 - 86 %) 40.1 L Lymph % (Auto) (24 - 44 %) 43.3 [place] % (Auto) (0.0 - 4.0 %) 9.4 H Eos % (Auto) (0.0 - 2.7 %) 6.1 H Baso % (Auto) (0.0 - 0.5 %) 1.1 H Eos # (Auto) (0.0 - 0.5 x10 3/uL) 0.34 Baso # (Auto) (0.0 - 0.2 x10 3/uL) 0.06 Absolute Neuts (auto) (1.8 - 7.7 x10 3/uL) 2.23 Absolute Lymphs (auto) (1.0 - 4.8 x10 3/uL) 2.41 Absolute Monos (auto) (0.0 - 0.8 x10 3/uL) 0.52 Urines Ur Spec Description Clean Catch Urine Color (YELLOW) YELLOW Urine Appearance (CLEAR) CLEAR Urine pH (5.5 - 7.0) 6.0 Ur Specific [place] (1.001 - 1.035) 1.010 Urine Protein (NEGATIVE mg/dL) NEGATIVE Urine Glucose (UA) (NEGATIVE mg/dL) NEGATIVE Urine Ketones (NEGATIVE mg/dL) NEGATIVE Urine Blood (NEGATIVE) NEGATIVE Urine Nitrite (NEGATIVE) NEGATIVE Urine Bilirubin (NEGATIVE) NEGATIVE Urine Urobilinogen (NORMAL mg/dL) NORMAL Ur Leukocyte Esterase (NEGATIVE) 25 H Urine RBC (NONE SEEN #/hpf) 0-2 H Urine WBC (<10 #/hpf) < 10 Ur Squamous Epith Cells (<100 #/lpf) 81 - 100 Urine Bacteria (NONE SEEN #/hpf) 2+ Urine Culture Screen Criteria not met Urine Comment VOLUME 10-12 ML Re-Evaluation MDM Free Text MDM NotesFree Text MDM NotesPatient's numbness and tingling sensation in lower extremities could be from hypomagnesemia, she is given IV magnesium here and will be discharged on oral magnesium. She is also advised to follow-up with PCP for further evaluation forany vitamin deficiency/a possible peripheral neuropathy. ED CourseMedication(s) OrderedMedication(s) Ordered:Central Nervous System Agents Sig/Natan Start time Last Medication Dose Route Stop Time Status Admin Magnesium Sulfate 1 GM X1ED STA 01/03 2002 DC 01/03 Sodium Chloride 100 ML IV 01/03 Electrolytic, Caloric, And Rosalba Sig/Natan Start time Last Medication Dose Route Stop Time Status Admin Sodium Chloride 100 ML .STK-MED ONE 01/03 2048 DC IV Patient Discharge Departure Vital Signs/ConditionVital SignsFirst Documented: Result Date Time Pulse Ox 97 01/03 1831 B/P 114/75 01/03 1831 B/P Mean 87.7 01/03 1831 Pulse 65 01/03 1831 Resp 18 01/03 183 Last Documented: Result Date Time Pulse Ox 97 01/03 1831 B/P 114/75 01/03 1831 B/P Mean 87.7 01/03 1831 Pulse 65 01/03 1831 Resp 18 01/03 183 All vital signs available at the time of this entry have been reviewed. Clinical ImpressionClinical ImpressionPrimary Impression: Lower extremity neuropathySecondary Impressions: Hypomagnesemia Disposition DecisionDischarge )( Discharged to Home Yes )( Time 2058 )( Date 01/03/23 Discharge/Care Plan(Auto) PrescriptionsCurrent Visit ScriptsMAGNESIUM OXIDE (MAG-OXIDE) 400 MG PO BID MAGNESIUM OXIDE (MAG-OXIDE) 400 MG PO BID #14 TABS Patient Instructions ED Neuropathy, Peripheral at 1822RPT #:[id number] OF REPORTEDEmergency department qkmbat4874-03-98E11:51:00D.[id number] for patient [id number]:22:56 [facility]"
[2024-04-17] MEDS ORDERED: ONDANSETRON 4 MG/2 ML VIAL ONE (16:53)
[2024-04-17] MEDS ORDERED: NA CHLORIDE 0.9% 1,000 ML ONE (16:54)
[2024-04-17] MEDS ORDERED: MORPHINE 4 MG/ML SYR ONE ×2 (16:54→17:29)
[2024-04-17 17:14] LABS: Anion Gap 8.2 mEq/L (5.0-15.0); Magnesium 1.8 mg/dL (1.6-2.4); Potassium 4.2 mEq/L (3.5-5.1)
[2024-04-17 17:21] LABS: Absolute Basophils 0.1 K/uL (0-0.5); Absolute Eosinophils 1.5 K/uL (0-0.5); Absolute Monocytes 0.9 K/uL (0.1-1.3); Eosinophils % 13.3 % (0-4.4); Hematocrit 39.6 % (36.0-45.0); Hemoglobin 13.3 g/dL (12.0-15.0); Lymphocytes % 17.5 % (15.3-44.8); MCH 30.4 pg (27.0-35.0); MCHC 33.7 g/dL (32.0-36.0); MCV 90.4 fL (80-100); Monocytes % 7.4 % (3.3-12.3); Neutrophils % 60.8 % (41.7-73.7); Nucleated Red Blood Cells % 0.1 % (0-0); Platelets 409 thou/uL (152-406); RBC Red Blood Cell Count 4.39 M/uL (3.86-4.86); Red Cell Distribution Width 12.4 % (12.1-15.2)
[2024-04-17] MEDS ORDERED: KETOROLAC 30 MG/ML INJ ONE (18:26)
--- NOTE | 2024-04-17 19:23 | RAD REPORT ---
EXAM DESCRIPTION: CT - Soft Tissue Neck W/Contr CLINICAL HISTORY: FACIAL PAIN COMPARISON: No comparisons TECHNIQUE: Thin axial CT images of the neck, performed following intravenous administration of iod inated contrast. Multiplanar reformats were generated and reviewed. All CT scans are performed using dose optimization technique as appropriate and may include automated exposure control or mA/KV adjustment according to patient size. FINDINGS: Nasopharyngeal tissues are normal in appearance. Fossa Rosenmller are normal. Parapharyngeal fat triangles are symmetric. Tongue base structures are normal. Epiglottis and aryepiglottic folds are normal. Piriform sinuses are well aerated. The vocal cords are normal in appearance. No suspicious adenopathy. Salivary glands are normal in appearance. Moderate centrilobular emphysematous changes. Included intracranial contents are unremarkable. Anterior plating hardware at C5-6. IMPRESSION: No acute abnormality. No suspicious mucosal mass or adenopathy.
--- NOTE | 2024-04-17 19:29 | RAD REPORT ---
EXAM DESCRIPTION: CT - CTFBWCON CLINICAL HISTORY: right side facial pain COMPARISON: No comparisons TECHNIQUE: Axial thin cut CT images of the face were obtained with sagittal and coronal reconstructi on images. Exam was performed following intravenous administration of 92 mL Isovue-300. All CT scans are performed using dose optimization technique as appropriate and may include automated exposure control or mA/KV adjustment according to patient size. FINDINGS: No acute facial bone fracture is seen.The mandible is intact. No abnormal enhancement. No suspicious mucosal masses or suspicious adenopathy. Major vascular struct ures are well opacified. The globes and orbital contents are grossly unremarkable.The paranasal sinuses and mastoids are clear . IMPRESSION: Normal contrast CT evaluation of the facial soft tissues.
[2024-04-17] MEDS ORDERED: FENTANYL CITR 100 MCG/2 ML ONE (20:12)
[2024-04-17] MEDS ORDERED: dexAMETHasone 10 MG/ML VIAL ONE (20:12)
--- NOTE | 2024-04-17 20:34 | EDPHYS ---
Physician Documentation [facility] Name: Sharon Fisher Age: 63 yrs Sex: Female : 1960 Arrival Date: 04/17/2024 Time: 16:18 Bed 5 Private MD: ED Physician Michael Carpenter HPI: 04/17 16:45 This 63 yrs old Female presents to ER via Ambulatory with complaints of Facial cp Swelling, Facial Pain. 16:45 The patient or guardian complains of pain, that is acute, swelling, tenderness. The cp symptoms are located right lateral side of neck. Onset: The symptoms/episode began/occurred yesterday. Context: The neck injury/problem resulted from from unknown cause. Associated signs and symptoms: Pertinent positives: headache, right ear and jaw pain, Pertinent negatives: fever, numbness, injury. 16:45 Severity of symptoms: in the emergency department the symptoms are unchanged, despite cp home interventions. Historical: - Allergies: 16:35 Lluvia; ap3 16:35 entrex; ap3 16:35 Sulfa (Sulfonamide Antibiotics); ap3 - PMHx: 16:35 Hypertensive disorder; ap3 - PSHx: 16:35 abdominal surgery; Appendectomy; Appendectomy; section; section; ap3 Cholecystectomy; neck surgery; Tonsillectomy; Total abdominal hysterectomy; - Immunization history:: Client reports receiving the 2nd dose of the Covid vaccine, Flu vaccine is not up to date. - Infectious Disease History:: Denies. - Social history:: Smoking status: Reported history of juuling and/or vaping. ROS: 16:50 Eyes: Negative for injury, pain, redness, and discharge, cp 16:50 Constitutional: Negative for body aches, chills, fever, poor PO intake, 16:50 ENT: Positive for ear pain, 16:50 Neck: Positive for pain at rest, swelling, of the left lateral neck, Negative for injury or acute deformity, 16:50 Cardiovascular: Negative for chest pain, 16:50 Respiratory: Negative for cough, shortness of breath, wheezing, 16:50 Abdomen/GI: Negative for abdominal pain, vomiting, diarrhea, constipation, 16:50 MS/extremity: Positive for swelling, pain and tenderness to left side of face, 16:50 Neuro: Positive for headache, 16:50 All other systems are negative, Exam: 16:55 Constitutional: The patient appears in no acute distress, alert, awake, cp non-diaphoretic, non-toxic, well developed, well nourished, in obvious pain, uncomfortable, 16:55 Head/face: Noted is swelling, that is mild, of the right ear and right jaw and right cp lateral neck, marked tenderness and pain to palpation of right TMJ. Sinus tenderness, is not appreciated, 16:55 Eyes: Periorbital structures: appear normal, Conjunctiva: normal, no exudate, no injection, Sclera: no appreciated abnormality, Lids and lashes: appear normal, bilaterally, 16:55 ENT: External ear(s): pain with movement, that is severe, of the pinna of right ear and right ear canal, Ear canal(s): are normal, clear, TM's: dullness, bilaterally, Nose: is normal, Mouth: Lips: moist, Oral mucosa: pink and intact, moist, Posterior pharynx: Airway: no evidence of obstruction, patent, Tonsils: are normal in appearance, swelling, is not appreciated, erythema, is not appreciated, exudate, is not appreciated, Voice: is normal, 16:55 Neck: C-spine: vertebral tenderness, is not appreciated, crepitus, is not appreciated, 16:55 Chest/axilla: Inspection: normal, 16:55 Cardiovascular: Rate: normal, Rhythm: regular, Edema: is not appreciated, JVD: is not appreciated, 16:55 Respiratory: the patient does not display signs of respiratory distress, Respirations: normal, no use of accessory muscles, no retractions, labored breathing, is not present, Breath sounds: are clear throughout, no decreased breath sounds, no stridor, no wheezing, 16:55 Abdomen/GI: Inspection: abdomen appears normal, 16:55 Back: pain, is absent, ROM is normal, 16:55 Skin: cellulitis, is not appreciated, no rash present. 16:55 Neuro: Orientation: to person, place \T\ time. Mentation: is normal, Cerebellar function: is grossly normal, Motor: moves all fours, strength is normal, Sensation: is normal, Vital Signs: 16:33 BP 164 / 111; Pulse 84; Resp 19; Temp 98.1; Pulse Ox 99% on R/A; Weight 64.86 kg; Pain ap3 9/10; 16:59 BP 164 / 90; Pulse 79; Resp 18; Pulse Ox 100% on R/A; Pain 9/10; ld1 17:31 BP 173 / 90; Pulse 76; Resp 18; Pulse Ox 100% on R/A; ld1 20:25 BP 149 / 77; Pulse 91; Resp 16; Pulse Ox 98% on R/A; kd3 16:33 Pain Scale: Adult ap3 16:59 Pain Scale: Adult ld1 MDM: 16:29 Patient medically screened. rn 17:00 Differential diagnosis: tonsillar abscess, retropharyngeal abscess, otitis media, cp mastoiditis, TMJ pain, dental abscess. 20:32 Data reviewed: vital signs, nurses notes, lab test result(s), radiologic studies, CT cp scan, and as a result, I will discharge patient. 20:32 I considered the following discharge prescriptions or medication management in the emergency department Medications were administered in the Emergency Department. See MAR. Counseling: I had a detailed discussion with the patient and/or guardian regarding the historical points, exam findings, and any diagnostic results supporting the discharge/admit diagnosis, lab results, radiology results, the need for outpatient follow up, an ENT specialist, to return to the emergency department if symptoms worsen or persist or if there are any questions or concerns that arise at home. Response to treatment: the patient's symptoms have markedly improved after treatment, and as a result, I will discharge patient. 04/17 16:39 Order name: Basic Metabolic Panel; Complete Time: 17:43 04/17 19:46 Interpretation: Normal except: NA 135; GFR 66. 04/17 16:39 Order name: CBC with Diff; Complete Time: 17:43 04/17 19:47 Interpretation: Normal except: WBC 11.60; PLT 409; MPV 7.0; EOSINOPHIL % 13.3; EOSA 1.5. 04/17 16:39 Order name: Magnesium; Complete Time: 17:43 / 16:39 Order name: CT Soft Tissue Neck W/contr; Complete Time: 19:34 04/17 19:47 Interpretation: Report reviewed. 04/17 16:39 Order name: CT Facial Bones W/ Con \T\ Mpr; Complete Time: 19:34 04/17 19:48 Interpretation: Report reviewed. cp 04/17 16:39 Order name: Cardiac monitoring; Complete Time: 16:59 cp 04/17 16:39 Order name: IV Saline Lock; Complete Time: 16:59 cp 04/17 16:39 Order name: Labs collected and sent; Complete Time: 16:59 cp 04/17 16:39 Order name: O2 Per Protocol; Complete Time: 16:42 cp 04/17 16:39 Order name: O2 Sat Monitoring; Complete Time: 16:42 cp 04/17 19:36 Order name: PO challenge; Complete Time: 19:54 cp Administered Medications: 16:59 Drug: morphine IVP or IV 4 mg IVP once over 4 mins Route: IVP; Infused Over: 4 mins; ld1 Site: left antecubital; 16:59 Drug: Ondansetron IVP 4 mg IVP once; over 2 minutes Route: IVP; Site: left antecubital; ld1 16:59 Drug: NS 0.9% IV 1000 ml IV at 250 ml/hr Per protocol Route: IV; Rate: 250 ml/hr; Site: ld1 left antecubital; 17:31 Drug: morphine IVP or IV 4 mg IVP once over 4 mins Route: IVP; Infused Over: 4 mins; ld1 Site: left antecubital; 18:22 CANCELLED (Physician Discretion): fentanyl (pf)50 mcg IVP once cp 18:28 Drug: Ketorolac IVP 15 mg IVP once Route: IVP; Site: left antecubital; ld1 20:20 Drug: Dexamethasone IVP 10 mg IVP once; (not to exceed 40 mg) Route: IVP; Site: left vc1 antecubital; 20:20 Drug: fentaNYL (PF) IVP 50 mcg IVP once Route: IVP; Site: left antecubital; vc1 Disposition Summary: 04/17/24 20:33 Discharge Ordered Notes: Location: Home cp Problem: new cp Symptoms: have improved cp Condition: Stable cp Diagnosis - Temporomandibular joint disorder, unspecified - right cp Followup: cp - With: Molly Cartwright MD - When: 2 - 3 days - Reason: Recheck today's complaints Discharge Instructions: - Discharge Summary Sheet cp - Temporomandibular Joint Syndrome cp Forms: - Medication Reconciliation Form cp - Antibiotic Education cp - Prescription Opioid Use cp - Patient Portal Instructions cp - Leadership Thank You Letter cp Prescriptions: - Diclofenac Sodium 75 mg Oral Tablet Sustained Release - take 1 tablet ORAL route 2 times per day; 30 tablet; Refills: 0, Product cp Selection Permitted - Tramadol 50 mg Oral Tablet - take 1 tablet ORAL route every 8 hours as needed; 12 tablet; Refills: 0, cp Product Selection Permitted - Medrol (Randal) 4 mg Oral Tablets, Dose Pack - take 1 tablet ORAL route as directed - follow package instructions; 1 packet; cp Refills: 0, Product Selection Permitted Addendum: 04/22/2024 06:59 Co-signature as Attending Physician, Michael Carpenter MD I reviewed the patient's care r n provided by the Advanced Practice Provider and agree with the diagnosis and treatment plan. Signatures: Dispatcher [employer] EDMS Michael Carpenter MD MD rn Page, Corey, PA PA cp Iris Silva RN RN ap3 Olesya Espinal RN RN ld1 Anjelica Forbes RN RN vc1 Corrections: (The following items were deleted from the chart) 04/17 18:22 18:22 fentaNYL (PF) IVP 50 mcg IVP once ordered. cp 04/18 17:04/17 16:30 ENT: Positive for ear pain, cp 04/18 17:04/17 16:30 Neuro: Positive for headache, cp 04/18 17:04/17 16:30 MS/extremity: Positive for swelling, pain and tenderness to left side of cp face, cp 04/18 17:04/17 16:30 Cardiovascular: Negative for chest pain, cp 04/18 17:04/17 16:30 Respiratory: Negative for cough, shortness of breath, wheezing, cp 04/18 17:04/17 16:30 Abdomen/GI: Negative for abdominal pain, vomiting, diarrhea, constipation, cp 04/18 17:04/17 16:30 Constitutional: Negative for body aches, chills, fever, poor PO intake, cp 04/18 17:04/17 16:30 Neck: Positive for pain at rest, swelling, of the left lateral neck, cp Negative for injury or acute deformity, cp 04/18 17:04/17 16:30 Eyes: Negative for injury, pain, redness, and discharge, cp cp 04/18 17:25 04/17 16:30 All other systems are negative, cp cp 04/18 17:33 04/17 17:00 Differential diagnosis: tonsillar abscess, retropharyngeal abscess, otitis cp media, mastoiditis, TMJ pain cp
--- NOTE | 2024-04-17 20:34 | ER ---
Nurse's Notes [facility] Name: Sharon Fisher Age: 63 yrs Sex: Female : 1960 Arrival Date: 04/17/2024 Time: 16:18 Bed 5 Private MD: Diagnosis: Temporomandibular joint disorder, unspecified-right Presentation: 04/17 16:33 Chief complaint: Patient states: she started having right sided facial pain, right ear ap3 pain, and states that she is having pain when she swallows or speaks. patient currently rates her pain as a 9/10 on the pain scale. Coronavirus screen: At this time, the client does not indicate any symptoms associated with coronavirus-19. Ebola Screen: No symptoms or risks identified at this time. Initial Sepsis Screen: Does the patient meet any 2 criteria? No. Patient's initial sepsis screen is negative. Does the patient have a suspected source of infection? No. Patient's initial sepsis screen is negative. Risk Assessment: Do you want to hurt yourself or someone else? Patient reports no desire to harm self or others. Onset of symptoms was April 16, 2024. 16:33 Method Of Arrival: Ambulatory ap3 16:33 Acuity: NICK 3 ap3 Triage Assessment: 16:35 General: Appears in no apparent distress. Behavior is calm, cooperative, appropriate ap3 for age. Pain: Complains of pain in right ear, throat and right side of face Pain currently is 9 out of 10 on a pain scale. Pain began last night. EENT: Reports pain when swallowing when speaking. Neuro: Level of Consciousness is awake, alert, obeys commands, Oriented to person, place, time, situation, Appropriate for age Speech is normal. Cardiovascular: Patient's skin is warm and dry. Respiratory: Airway is patent Respiratory effort is even, unlabored, Respiratory pattern is regular, symmetrical. Historical: - Allergies: 16:35 Lluvia; ap3 16:35 entrex; ap3 16:35 Sulfa (Sulfonamide Antibiotics); ap3 - PMHx: 16:35 Hypertensive disorder; ap3 - PSHx: 16:35 abdominal surgery; Appendectomy; Appendectomy; section; section; ap3 Cholecystectomy; neck surgery; Tonsillectomy; Total abdominal hysterectomy; - Immunization history:: Client reports receiving the 2nd dose of the Covid vaccine, Flu vaccine is not up to date. - Infectious Disease History:: Denies. - Social history:: Smoking status: Reported history of juuling and/or vaping. Screenin:36 Abuse screen: Denies threats or abuse. Nutritional screening: No deficits noted. ap3 Tuberculosis screening: No symptoms or risk factors identified. 16:38 [facility] ED Fall Risk Assessment (Adult) History of falling in the last 3 months, ko1 including since admission No falls in past 3 months (0 pts) Confusion or Disorientation No (0 pts) Intoxicated or Sedated No (0 pts) Impaired Gait No (0 pts) Mobility Assist Device Used No (0 pt) Altered Elimination No (0 pt) Score/Fall Risk Level 0 - 2 = Low Risk Oriented to surroundings, Maintained a safe environment, Educated pt \\T\\ family on fall prevention, incl call for assistance when getting out of bed, Assessed \\T\\ reinforced patient's understanding of fall precautions, Provided non-skid footwear, Hourly rounding (assess needs \\T\\ fall precautionary measures) done, Used ambulatory aids as needed (educated on \\T\\ assisted with). Assessment: 16:38 General: Appears in no apparent distress. uncomfortable, Behavior is calm, cooperative, ko1 appropriate for age. Pain: Complains of pain in right cheek and right ear. Neuro: No deficits noted. Cardiovascular: No deficits noted. Respiratory: No deficits noted. GI: No deficits noted. : No deficits noted. EENT: Reports pain when swallowing. Derm: No deficits noted. Musculoskeletal: No deficits noted. 17:31 Reassessment: Pt c/o severe pain to face, jaw and head. Notified ERP. See MAR for ld1 orders. 18:30 Reassessment: Pt requesting stronger pain medication. States "morphine is not touching ld1 my pain, I have never felt this pain before." Notified ERP. See MAR for orders. 18:30 Reassessment:. ld1 20:59 Reassessment: Patient appears in no apparent distress at this time. Patient and/or jb4 family updated on plan of care and expected duration. Pain level reassessed. Patient is alert, oriented x 3, equal unlabored respirations, skin warm/dry/pink. Vital Signs: 16:33 BP 164 / 111; Pulse 84; Resp 19; Temp 98.1; Pulse Ox 99% on R/A; Weight 64.86 kg; Pain ap3 9/10; 16:59 BP 164 / 90; Pulse 79; Resp 18; Pulse Ox 100% on R/A; Pain 9/10; ld1 17:31 BP 173 / 90; Pulse 76; Resp 18; Pulse Ox 100% on R/A; ld1 20:25 BP 149 / 77; Pulse 91; Resp 16; Pulse Ox 98% on R/A; kd3 16:33 Pain Scale: Adult ap3 16:59 Pain Scale: Adult ld1 ED Course: 16:21 Patient arrived in ED. im 16:29 Micahel Carpenter MD is Attending Physician. rn 16:29 Zhen Garcia PA is PHCP. cp 16:33 Michelle Ahuja, RN is Primary Nurse. ko1 16:34 Triage completed. ap3 16:36 Arm band placed on right wrist. ap3 16:36 Provided Education on: fall risk education and call light education. ap3 16:38 Patient has correct armband on for positive identification. Allergy band placed. Bed in ko1 low position. Call light in reach. Side rails up X 1. Pulse ox on. NIBP on. Door closed. Noise minimized. Lights dimmed. Warm blanket given. Pillow given. 16:38 No provider procedures requiring assistance completed. ko1 16:40 Radiology exam delayed due to lab results not completed at this time. (BUN/Creatinine) nj IV insertion attempt and/or patient not having appropriate IV at this time. 16:59 Inserted saline lock: 20 gauge in left antecubital area, using aseptic technique. Blood ld1 collected. 17:15 Patient requests pain medication. ld1 17:56 CT Soft Tissue Neck W/contr In Process Unspecified. EDMS 17:56 CT Facial Bones W/ Con \\T\\ Mpr In Process Unspecified. EDMS 20:33 Molly Cartwright MD is Referral Physician. cp 20:59 IV discontinued, intact, bleeding controlled, No redness/swelling at site. Pressure jb4 dressing applied. Administered Medications: 16:59 Drug: morphine IVP or IV 4 mg IVP once over 4 mins Route: IVP; Infused Over: 4 mins; ld1 Site: left antecubital; 16:59 Drug: Ondansetron IVP 4 mg IVP once; over 2 minutes Route: IVP; Site: left antecubital; ld1 16:59 Drug: NS 0.9% IV 1000 ml IV at 250 ml/hr Per protocol Route: IV; Rate: 250 ml/hr; Site: ld1 left antecubital; 17:31 Drug: morphine IVP or IV 4 mg IVP once over 4 mins Route: IVP; Infused Over: 4 mins; ld1 Site: left antecubital; 18:22 CANCELLED (Physician Discretion): fentanyl (pf)50 mcg IVP once cp 18:28 Drug: Ketorolac IVP 15 mg IVP once Route: IVP; Site: left antecubital; ld1 20:20 Drug: Dexamethasone IVP 10 mg IVP once; (not to exceed 40 mg) Route: IVP; Site: left vc1 antecubital; 20:20 Drug: fentaNYL (PF) IVP 50 mcg IVP once Route: IVP; Site: left antecubital; vc1 Medication: 16:38 VIS not applicable for this client. ko1 Outcome: 20:33 Discharge ordered by . cp 20:59 Discharged to home ambulatory, with family, jb4 20:59 Condition: stable 20:59 Discharge instructions given to patient, Instructed on discharge instructions, follow up and referral plans. no drinking with medication, no driving heavy equipment, medication usage, Demonstrated understanding of instructions, follow-up care, medications, Prescriptions given X 3, 21:00 Patient left the ED. jb4 Signatures: Dispatcher [employer] EDMS Michael Carpenter MD MD rn Page, Corey, PA PA Esvin Barrera RN RN jb4 Zachariah Whiteside Amanda, RN RN [email or web address] Olesya Espinal RN RN ld1 Lianna Coto RN RN kd3 Anjelica Forbes RN RN vc1 Michelle Ahuja RN RN ko1 Micaela Samaniego im
[2024-04-17 21:11] VITALS: BP 149/77; TEMP 98.1; O2SAT 98
== END 2024-04-17 21:00 | disposition home or self-care (01) ==
LOC: ER 16:18
DX: M26.601 Right temporomandibular joint disorder, unspecified (principal)
CPT/HCPCS: 85025; 80048; 36415; 83735; 70487; 70491; 76377; 96375; 96374; 99284; Q9967; J3010; J1100; J2405; J7030